=== PATIENT | male | born 1930 | race Hispanic/Latino ===

== ENCOUNTER → 2019-09-18 | Outpatient (CLI) | payer OTHER | END | disposition home or self-care (01) | LOC: RAH 12:47 | PROVIDERS: ATTEND Internal Medicine Cardiovascular Disease | DX: Z13.6 Encounter for screening for cardiovascular disorders (principal) | CPT/HCPCS: 75571 ==

== ENCOUNTER → 2020-11-04 | Outpatient (CLI) | payer MEDICARE | END | disposition home or self-care (01) | LOC: RAH 08:57 | PROVIDERS: ATTEND Urology | DX: N28.1 Cyst of kidney, acquired (principal); N26.1 Atrophy of kidney (terminal); K57.30 Diverticulosis of large intestine without perforation or abscess without bleeding; K40.90 Unilateral inguinal hernia, without obstruction or gangrene, not specified as recurrent | CPT/HCPCS: 74176; 76770 ==

== ENCOUNTER 2021-03-09 13:02 | Emergency (ER) | payer MEDICARE ==
[~2021-03-09] VITALS: Ht 175.3 cm; Wt 65.3 kg
[2021-03-09] MEDS ORDERED: HYDROCODONE/ACETAMINOPHEN 5/325 MG TAB PO ONE (13:30)
[2021-03-09] MEDS ORDERED: ACET1TAB25 PO (16:43)
[2021-03-09] MEDS ORDERED: MORPHINE 2 MG SYG IM ONE (17:00)
[2021-03-09 17:09] VITALS: BP 122/50
== END 2021-03-09 17:42 | disposition home or self-care (01) ==
LOC: EDH 13:02
DX: S42.201A Unspecified fracture of upper end of right humerus, initial encounter for closed fracture (principal); S80.02XA Contusion of left knee, initial encounter; S09.90XA Unspecified injury of head, initial encounter; M25.522 Pain in left elbow; I25.10 Atherosclerotic heart disease of native coronary artery without angina pectoris; Z88.0 Allergy status to penicillin; Z90.49 Acquired absence of other specified parts of digestive tract; W01.0XXA Fall on same level from slipping, tripping and stumbling without subsequent striking against object, initial encounter; Y93.89 Activity, other specified; Y92.89 Other specified places as the place of occurrence of the external cause; Y99.8 Other external cause status
CPT/HCPCS: 29105; 70450; 72125; 73030; 73060; 73070; 73562; 96372